=== PATIENT | male | born 1990 | race American Indian/Alaskan Native ===

== ENCOUNTER 2020-12-23 12:39 | Emergency (ER) | payer MEDICAID, OTHER ==
[2020-12-23] MEDS ORDERED: Bacitracin Oint 1 GM U/D Packet TOP ONE (12:52)
[2020-12-23] MEDS ORDERED: Diphtheria,Pertussis(Acell),Tetanus Vaccine 0.5 ML Syringe IM ONE (12:52)
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
== END 2020-12-23 13:37 | disposition home or self-care (01) ==
LOC: JP.ED 12:39
DX: S01.511A Laceration without foreign body of lip, initial encounter (principal); V49.9XXA Car occupant (driver) (passenger) injured in unspecified traffic accident, initial encounter
CPT/HCPCS: 12011; 99284-25